=== PATIENT | male | born 1960 | race Caucasian/White ===

== ENCOUNTER 2024-12-19 12:11 | Emergency (ER) | payer MEDICARE, OTHER ==
[~2024-12-19] VITALS: Ht 175.3 cm; Wt 81.8 kg
[2024-12-19 12:34] VITALS: TEMP 97
[2024-12-19 13:23] LABS: EOSINOPHILS # (AUTO) 0.2 X10'3 (0-0.9); HEMOGLOBIN 14.1 g/dl (14.0-17.9); LYMPHOCYTES # (AUTO) 0.8 X10'3 (1.1-4.8)
[2024-12-19 13:25] LABS: BASOPHILS % (AUTO) 0.6 % (0-1); EOSINOPHILS % (AUTO) 3.5 % (0-6); HEMATOCRIT 42.3 % (42.0-52.0); MEAN CORPUSCULAR HEMOGLOBIN 30.3 PG (27.0-31.0); MEAN CORPUSCULAR HGB CONC 33.4 g/dL (33.0-36.5); MEAN CORPUSCULAR VOLUME 90.9 FL (78-98); MEAN PLATELET VOLUME 10.8 FL (7.4-10.4); MONOCYTES # (AUTO) 0.5 X10'3 (0-0.9); MONOCYTES % (AUTO) 7.6 % (2-12); NEUTROPHILS # (AUTO) 4.5 X10'3 (1.8-7.7); NEUTROPHILS % (AUTO) 74.3 % (42-75); PLATELET COUNT 156 X10'3 (140-440); RED BLOOD COUNT 4.66 X10'6 (4.70-6.10); RED CELL DISTRIBUTION WIDTH 14.7 % (11.5-14.5)
[2024-12-19 13:51] LABS: ALBUMIN 3.4 G/DL (3.4-5.0); ANION GAP 7 (8-16); BLOOD UREA NITROGEN 28 MG/DL (7-18); BUN/CREATININE RATIO 31.8 (10.0-20.0); CALCIUM 8.6 MG/DL (8.5-10.1); CHLORIDE 106 MMOL/L (99-107); CREATININE 0.88 MG/DL (0.60-1.10); ETHANOL < 10 MG/DL (<10); GLUCOSE 113 MG/DL (70-104); POTASSIUM 4.4 MMOL/L (3.5-5.1); SODIUM 138 MMOL/L (135-145); TOTAL CARBON DIOXIDE 24.7 MMOL/L (24-32); eCRCL 87 ML/MIN; eGFR 88 ML/MIN
[2024-12-19 13:52] LABS: PLATELET ESTIMATE NORMAL
[2024-12-19 13:53] LABS: GIANT PLATELET FEW; LARGE PLATELETS FEW
[2024-12-19] MEDS ORDERED: LORazepam 1 MG tablet PO PRN (14:25)
[2024-12-20 02:37] LABS: BILIRUBIN,URINE NEGATIVE (Neg); CLARITY,URINE CLEAR (Clear); COLOR,URINE YELLOW (Yellow); GLUCOSE, URINE NEGATIVE (Neg); KETONES,URINE NEGATIVE (Neg); LEUKOCYTE ESTERASE ,URINE SMALL (Neg); NITRITES, URINE NEGATIVE (Neg); OCCULT BLOOD,URINE NEGATIVE (Neg); PROTEIN,URINE NEGATIVE (Neg); UROBILINOGEN,URINE 0.2 E.U/dL (0.2-1.0)
[2024-12-20 02:42] LABS: UA COLLECTION TYPE CLN CATCH MIDSTREAM
[2024-12-20 02:43] LABS: MUCUS STRANDS MODERATE /LPF (Neg)
[2024-12-20 02:44] LABS: BACTERIA,URINE FEW /HPF (Neg); RBC,URINE NONE SEEN /HPF (0-2); SQUAMOUS EPITHELIAL CELL,UR FEW /LPF (FEW)
[2024-12-20 03:02] LABS: URINE AMPHETAMINE SCREEN POSITIVE (Neg); URINE BARBITUATE SCREEN NEGATIVE (Neg); URINE BENZODIAZEPINES SCREEN NEGATIVE (Neg); URINE CANNABINOID SCREEN NEGATIVE (Neg); URINE COCAINE SCREEN NEGATIVE (Neg); URINE METHADONE SCREEN NEGATIVE (Neg); URINE OPIATE SCREEN NEGATIVE (Neg); URINE PHENCYCLIDINE SCREEN NEGATIVE (Neg)
[2024-12-20 07:09] VITALS: BP 128/84; PULSE 85; RESP 15; O2SAT 98
== END 2024-12-20 12:10 | disposition home or self-care (01) ==
LOC: ER 12:13 → EDUNIT# 12:13 → ER 12-20 12:10
DX: F29 Unspecified psychosis not due to a substance or known physiological condition (principal); F15.90 Other stimulant use, unspecified, uncomplicated; Z20.822 Contact with and (suspected) exposure to COVID-19
CPT/HCPCS: 36415; 80048; 80305; 80320; 81001; 84443; 85008; 85025; 87811; 99285